=== PATIENT | female | born 1980 | race Two or more races ===

== ENCOUNTER → 2019-09-25 09:21 | Outpatient (CLI) | payer BC, SELFPAY ==
[2019-09-25 09:02] VITALS: BMI 25.9
[2019-09-25 11:06] LABS: Absolute Lymphocyte Count 1.41 X10^3/uL (0.83-4.51); Absolute Neutrophil Count 3.9 X10^3/uL (2.0-7.7); Basophil# 0.03 X10^3/uL; Basophil% 0.5 % (0-1); Eosinophil# 0.09 X10^3/uL; Eosinophils% 1.5 % (0-5); Hemoglobin 13.5 g/dL (12.0-15.0); Lymphocyte # 1.41 X10^3/ul (4.0); Lymphocyte % 24.1 % (19-41); Mean Corp Hgb Conc 32.9 g/dL (32-36); Mean Corpuscular Hgb 30.2 pg (27.0-32.0); Mean Corpuscular Volume 91.7 fL (81-99); Mean Platelet Vol. 9.5 fl (6.2-12.0); Monocyte# 0.37 X10^3/uL; Monocyte% 6.3 % (0-10); NRBC Flagged by Analyzer 0 % (0-5); Neutrophil # 3.93 X10^3/uL (2.7-7.7); Neutrophil % 67.3 % (47-70); Platelet Count 226 K/mm3 (150-450); RBC Distribution Width CV 12.2 % (11.6-14.6); RBC Distribution Width SD 41.4 fl (35.1-43.9); Red Blood Count 4.47 M/mm3 (4.2-5.4); White Blood Count 5.9 K/mm3 (4.4-11.0)
[2019-09-25 11:35] LABS: ALB/GLOB Ratio 1.1 RATIO (0.9-2.4); AST(SGOT) 37 U/L (15-37); Alanine Aminotransfer ALT/SGPT 107 U/L (13-56); Albumin, Serum 4.4 g/dL (3.2-5.0); Alkaline Phosphatase 75 U/L (45-117); Anion Gap 5 (5-15); BUN 11 mg/dL (7-18); BUN/Creat Ratio 10.8 RATIO (10-20); Calcium,Total 9.4 mg/dL (8.5-10.1); Chloride 109 mmol/L (98-107); Creatinine, Serum 1.02 mg/dL (0.55-1.02); EST Glomerular Filtration Rate 65 mL/min (>60); Est Glom Filt Rate - Afr Amer 78 mL/min (>60); Globulin 3.9 g/dL (2.2-4.2); Glucose 70 mg/dL (74-106); Potassium 3.8 mmol/L (3.5-5.1); Protein, Total 8.3 g/dL (6.4-8.2); Sodium Level 141 mmol/L (136-145)
[2019-09-29 03:06] LABS: Testosterone, % Free 2.79 % (0.50-2.80); Testosterone, Free 1.14 ng/dL (0.10-0.85); Testosterone, Total 41 ng/dL (8-48)
[2019-09-30 10:20] LABS: DHEA Sulfate 360.9 ug/dL (57.3-279.2)
== END ==
PROVIDERS: Referring Provider Internal Medicine Endocrinology, Diabetes & Metabolism; Visit Provider Internal Medicine Endocrinology, Diabetes & Metabolism
DX: E28.8 Other ovarian dysfunction (principal)
CPT/HCPCS: 36415; 80053; 82627; 84402; 84403; 85025; 82626

== ENCOUNTER → 2021-06-21 10:40 | Outpatient (CLI) | payer BC, SELFPAY ==
[2021-06-21 12:11] LABS: Absolute Lymphocyte Count 1.43 X10^3/uL (0.83-4.51); Absolute Neutrophil Count 4.9 X10^3/uL (2.0-7.7); Basophil# 0.02 X10^3/uL; Basophil% 0.3 % (0-1); Eosinophil# 0.09 X10^3/uL; Eosinophils% 1.3 % (0-5); Hematocrit 36.8 % (37-47); Hemoglobin 12.1 g/dL (12.0-15.0); Lymphocyte # 1.43 X10^3/ul (0.83-4.51); Lymphocyte % 20.9 % (19-41); Mean Corp Hgb Conc 32.9 g/dL (32-36); Mean Corpuscular Hgb 30.8 pg (27.0-32.0); Mean Corpuscular Volume 93.6 fL (81-99); Mean Platelet Vol. 9.8 fl (6.2-12.0); Monocyte# 0.38 X10^3/uL; Monocyte% 5.6 % (0-10); NRBC Flagged by Analyzer 0 % (0-5); Neutrophil % 71.6 % (47-70); Platelet Count 219 K/mm3 (150-450); RBC Distribution Width CV 12.1 % (11.6-14.6); RBC Distribution Width SD 42.1 fl (35.1-43.9); Red Blood Count 3.93 M/mm3 (4.2-5.4); White Blood Count 6.8 K/mm3 (4.4-11.0)
[2021-06-21 12:25] LABS: Vitamin B12 604 pg/mL (211-911); Vitamin D,25 Hydroxy 29.4 ng/mL
[2021-06-21 12:37] LABS: ALB/GLOB Ratio 1.1 RATIO (0.9-2.4); AST(SGOT) 17 U/L (15-37); Alanine Aminotransfer ALT/SGPT 30 U/L (13-56); Alkaline Phosphatase 61 U/L (45-117); Anion Gap 6 (5-15); BUN 11 mg/dL (7-18); Calcium,Total 8.9 mg/dL (8.5-10.1); Chloride 106 mmol/L (98-107); Creatinine, Serum 0.91 mg/dL (0.55-1.02); EST Glomerular Filtration Rate 73 mL/min (>60); Est Glom Filt Rate - Afr Amer 88 mL/min (>60); Globulin 3.6 g/dL (2.2-4.2); Glucose 81 mg/dL (74-106); Potassium 4.1 mmol/L (3.5-5.1); Protein, Total 7.6 g/dL (6.4-8.2); Sodium Level 140 mmol/L (136-145); T4 Free Direct 0.89 ng/dL (0.76-1.46); Thyroid Stim Hormone (TSH) 1.35 uIU/mL (0.358-3.74)
== END ==
PROVIDERS: Referring Provider Internal Medicine Endocrinology, Diabetes & Metabolism; Visit Provider Internal Medicine Endocrinology, Diabetes & Metabolism
DX: E27.9 Disorder of adrenal gland, unspecified (principal); E53.8 Deficiency of other specified B group vitamins; E55.9 Vitamin D deficiency, unspecified
CPT/HCPCS: 36415; 80053; 82306; 82607; 84439; 84443; 85025

== ENCOUNTER → 2022-02-10 | Outpatient (CLI) | payer BC, SELFPAY ==
--- NOTE | 2022-02-10 11:30 | BRBX_PTH ---
PATIENT: JENNIFER LOPEZ LOC: [facility] U#:[id number] AGE/SX: 41/F ROOM: RE02/10/[address]: Dr. Darrian Tang MD : 1980 BED: DIS: 02/10/2022 SPEC #: [id number] RECD: 02/10/22 12:22 STATUS: [facility] #: [id number] CONCETTA: 02/10/22 11:[address]: Darrian Tang DEPT: SURGICAL PATHOLOGY RECD BY: Cathie Dubon Tissues: A - Right breast, NOS B - Right breast, NOS Procedures: Surgery Specimen Level IV HEADER OPERATION: Right stereotactic breast biopsy PRE-OP DIAGNOSIS: Microcalcifications two areas TISSUE SUBMITTED: A ? Lateral breast, B ? Medial breast ISCHEMIC TIME: 2 minutes FIXATION TIME: 104 hours MICROSCOPIC DIAGNOSIS A. Right lateral breast, stereotactic core biopsy: Fibrocystic change. Intraductal hyperplasia without atypia. Banal polarizable microcalcifications. B. Right medial breast, stereotactic core biopsy: Fibrocystic change. Intraductal hyperplasia without atypia. Focal changes of fat necrosis. No evidence of malignancy. AM:morales 02/15/2022 MICROSCOPIC DESCRIPTION Slides are reviewed. GROSS DESCRIPTION A - Received in fixative is one container labeled with the patient's name and designated lateral. The specimen consists of multiple irregular and rubbery fragments of light anguiano soft tissue that in aggregate measure 5 x 3.5 x 0.2 cm. The specimen is totally submitted in two cassettes. B - Received in fixative is one container labeled with the patient's name and designated medial. The specimen consists of multiple irregular and rubbery fragments of yellow-anguiano soft tissue that in aggregate measure 5 x 3.5 x 0.2 cm. The specimen is totally submitted in two cassettes. / AM:morales 02/14/2022 TC:5 CPT: 04400 x2
--- NOTE | 2022-02-10 11:56 | PCM.OPRPT ---
Problems Associated Problem List Diagnoses (1) Microcalcification of right breast on mammogram: Report of Operation Date of Procedure: 02/10/22 Pre-Operative Diagnosis: Microcalcifications right breast x2 Post-Operative Diagnosis: Same Surgery/Procedure Performed:: Right stereotactic breast biopsy x2 Surgeon: Darrian Tang laborer laboratory: None Type of Anesthesia: Local Specimen's removed: 1. Right superior lateral 2. Right superior medial Drains: none Estimated Blood Loss (mL): <25 cc Description of Procedure: Patient was brought into the mammography unit. Placed in the supine position on the fissure table. Right breast was brought down through the opening. We went to the right superior lateral aspect of the breast first. Identified the microcalcifications. ?15 degree views were obtained. Targeted on the microcalcifications. Prepped the breast with Betadine. Injected 1% lidocaine plain. Made a skin sara. Needle was placed in the prefire position 2 more stereo views were obtained showing the area to be adequately targeted. I fired the needle and took 360 degrees circumferential biopsies I x-rayed my specimen and microcalcifications were present. I backed the needle off 7 mm. I placed a small titanium clip remove the needle x-ray my breast the clip was in good placement. We then repositioned the patient looking at the superior medial aspect. Microcalcifications were identified. ?10 degree views were obtained. I targeted on the microcalcifications. Prepped the breast with Betadine again. Local was injected. A skin sara was made. Needle was placed in the prefire position. 2 more stereo views were obtained showing the area to be adequately targeted. Fired the needle took 360 degrees circumferential biopsies. X-ray the specimen. Microcalcifications were identified. Back the needle off 7 mm. Placed a small titanium clip. X-rayed the breast. The clip was in good placement. Patient was taken out of the machine. Stereotactic views were obtained. Patient tolerated the procedure well. Admit VTE Documentation VTE Present on Admission: No VTE Mechan Device Prophylaxis: None VTE Pharm Prophylaxis ordered?: No Reason prophylaxis not ordered:: Treatment Not Indicated
[2022-02-10 12:00] VITALS: BP 100/64; PULSE 60; RESP 16; O2SAT 99
[2022-02-10 12:04] VITALS: BP 112/73; PULSE 64; RESP 16; O2SAT 100
--- NOTE | 2022-02-10 12:06 | PCM.HP.BLA ---
History and Physical Date of Admission: 02/10/22 HISTORY AND PHYSICAL - BREAST COMPLAINT ? Tami Gu 1980 ? ? REFERRING PHYSICIAN: Simone Still, * ? CHIEF COMPLAINT: Mammographic microcalcification found on diagnostic imaging of breast (primary encounter diagnosis) ? ? HPI: The patient is a 41 year old female with a complaint of an abnormal mammogram. The patient had a mammogram with ultrasound on 12/19/21 which demonstrated : IMPRESSION: SUSPICIOUS FINDING - BIOPSY SHOULD BE CONSIDERED The grouped pleomorphic calcifications in the right breast superior lateral quadrant posterior depth are suspicious of malignancy. ?A stereotactic biopsy is recommended. The grouped pleomorphic calcifications in the right breast superior medial quadrant middle depth are suspicious of malignancy. ?A stereotactic biopsy is recommended. ? ? The patient denies a history of breast masses. She does perform a self breast exam routinely. She notes no skin changes. She denies nipple discharge. She notes no axillary masses. She notes no family history of breast problems. She notes no significant breast trauma or breast difficulties in the past. ? The patient is being seen by me today at the request of Dr. Still for my opinion and advice regarding Mammographic microcalcification found on diagnostic imaging of breast (primary encounter diagnosis). ? PAST MEDICAL HISTORY PAST MEDICAL HISTORY Diagnosis Date ? Androgen excess ? ? Female hirsutism ? ? 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 ? PAST SURGICAL HISTORY PAST SURGICAL HISTORY Procedure Laterality Date ? SECTION HX ? ? ? DILATION & CURETTAGE ? ? ? LAPAROSCOPY W/REM ADNEX STRUCT ? 2005 ? ov cystectomy due to a dermoid ? PCHG TUBAL W/ ? CURRENT MEDICATIONS Current Outpatient Medications Medication Sig Dispense Refill ? spironolactone (ALDACTONE ORAL) Take by mouth. ? ? ? cyanocobalamin 1,000 mcg/mL Inject 1 mL intramuscularly. ? ? ? flutamide (EULEXIN) 125 mg capsule Take 1 capsule by mouth twice daily. 180 capsule 3 ? No current facility-administered medications for this visit. ? ? ALLERGIES: Patient has no known allergies. ? PERSONAL HISTORY: SOCIAL HISTORY Social History ? Tobacco Use ? Smoking status: Never Smoker ? Smokeless tobacco: Never Used Vaping Use ? Vaping Use: Never used Substance Use Topics ? Alcohol use: Yes ? ? Comment: occosional ? Drug use: No ? FAMILY HISTORY: FAMILY HISTORY FAMILY HISTORY Problem Relation Age of Onset ? Kidney Disease Mother 50 ? No Known Problems Father ? ? No Known Problems Brother ? ? No Known Problems Brother ? ? Breast Cancer Maternal Grandmother 60 ? Recurrent breast cancer ? Colon Cancer Maternal Grandmother ? ? Kidney Disease Maternal Grandfather ? ? Liver Cancer Maternal Grandfather ? ? No Known Problems Paternal Grandfather ? ? Pancreatic Cancer Maternal Uncle ? ? Ovarian cancer Other ? ? other (uterine cancer) Other ? ? other (heart disease) Other ? ? ? REVIEW OF SYMPTOMS: The review of systems data was entered by the nurse and reviewed by me ? Nursing Notes: Ros Albarran RN 01/24/2022 1:08 PM Signed REVIEW OF SYSTEMS: General: The patient denies fatigue, denies weight loss, denies weight gain, denies feeling hot, and denies feelings of cold. Eyes: The patient denies glaucoma, denies eye injury/surgery, wears glasses or contacts. Ear/Nose/Throat: The patient denies allergies, denies hayfever, denies ear infections, and denies bloody noses. Cardiovascular: The patient denies chest pain, denies heart disease, denies high blood pressure,denies cardiac stent, denies prior heart attack, denies irregular heart beat, denies high cholesterol, denies poor circulation, denies heart failure, other cardiac issues, denies claudication, denies cold feet, denies peripheral arterial stent. Respiratory: The patient denies tuberculosis, denies pneumonia, denies frequent cough, denies pulmonary embolism, denies shortness of breath, and denies coughing up blood. Gastrointestinal: The patient denies difficulty swallowing, denies acid reflux, denies ulcers, denies vomiting, denies jaundice/hepatitis, denies gallbladder problems, denies black or tarry stools, denies hemorrhoids, denies bleeding from rectum, denies diverticulitis, denies constipation, denies diarrhea, denies loss of stool control, and denies hernias. Kidney/Bladder: The patient denies kidney stones, denies urine infections, and denies bloody urine. Skin: The patient denies a history of skin cancer, denies bleeding/changing moles, and denies a history of skin rash. Neurologic: The patient denies a history of epilepsy/convulsions, NOTES headaches, denies head/spinal injuries, and denies stroke/TIA. Psychiatric: The patient denies psychiatric medications, denies depression, and denies voices, denies substance abuse. Endocrine: The patient denies thyroid disorders, denies diabetes, and NOTES hormonal problems. Hematologic: The patient denies a history of bruising, denies bleeding, and denies anemia, denies blood clots. Infections: The patient denies a history of measles and mumps, denies rheumatic fever, and denies sexually transmitted diseases. Musculoskeletal: The patient denies back pain/injury, denies back problems, denies sciatica, denies knee/foot trouble, denies arthritis, or denies gout. ? ? When was patient's last Mammogram screening? 2021 ? Last Colonoscopy: 2020 ? Ros Albarran RN ? PHYSICAL EXAMINATION: ? General: The patient is 41 year old female, well nourished, well hydrated in no acute distress. The patient is oriented to time, place, and person. ? VITALS: Blood pressure 110/70, pulse 96, temperature 36.6 ?C (97.9 ?F), height 167.6 cm (5' 6), weight 72.2 kg (159 lb 3.2 oz), last menstrual period 01/08/2022, SpO2 98 %. Body mass index is 25.7 kg/m?. ? HEENT: Normal cephalic, ataumatic, pupils are equally round, sclera are anicteric, mucous membranes are moist, oropharynx is clear. Neck has no masses, asymmetry or lymphadenopathy. Thyroid is unremarkable. ? Respiratory: Clear to auscultation and percussion. Normal respiratory excursion and pattern. ? Cardiac: Examination is regular rate and rhythm. ? Abdominal exam: Soft, nontender, with no palpable masses. No hepatosplenomegaly. No palpable hernias. ? Rectal exam: exam deferred Extremities: no clubbing, cyanosis or edema. No adenopathy. ? Breast: Visual inspection reveals no retractions, nipple inversion, or skin changes. Palpation of the right breast reveals no dominant or suspicious masses, but multiple benign-feeling nodules. Palpation of the left breast reveals no dominant or suspicious masses, but multiple benign-feeling nodules. Axillary exam demonstrates no suspicious masses in either the left or right axilla. There is no nipple discharge expressed from either the left or right breast. ? LABORATORY VALUES: As Noted ? RADIOLOGIC STUDIES: As Noted ? Assessment IMPRESSION: Mammographic microcalcification found on diagnostic imaging of breast (primary encounter diagnosis) ? PLAN: I plan to perform a stereotactic biopsy of the right breast. The planned surgical procedure was discussed extensively with the patient. The risks, benefits, anticipated outcomes and possible complications were mentioned. My staff has also explained the procedure in understandable terms and the patient was given the option to take printed material concerning the planned procedure. The patient had the opportunity to ask questions concerning the planned procedure. The patient freely consents to the planned procedure. ? ? Diagnoses: (R92.0) Mammographic microcalcification found on diagnostic imaging of breast (primary encounter diagnosis) ? My findings have been communicated to Dr. Still via shared medical record. This note will be forwarded to Dr. Julia Garcia CNP. ? Return to Clinic: The patient is instructed to follow-up with me 1 week post operatively. ? Darrian Tang III, MD I have re-examined the patient. There are no clinical changes since date of exam.
== END | disposition home or self-care (01) ==
LOC: BIRAD 10:52
PROVIDERS: Visit Provider Surgery
DX: N60.11 Diffuse cystic mastopathy of right breast (principal); N60.91 Unspecified benign mammary dysplasia of right breast; N64.1 Fat necrosis of breast; R92.0 Mammographic microcalcification found on diagnostic imaging of breast
CPT/HCPCS: 19081; 19082; 88305; J7050